=== PATIENT | female | born 1985 | race Caucasian/White ===

== ENCOUNTER 2017-08-04 19:06 | Emergency (ER) | payer OTHER ==
[~2017-08-04] VITALS: Ht 170.2 cm; Wt 68.0 kg
--- NOTE | 2017-08-04 21:14 | Diagnostic Imaging Report ---
KNEE RIGHT THREE VIEWS Comparison: None Clinical history: Right knee pain ongoing Findings: Limited portable views provided. Status post proximal tibial sideplate and screw fixation. No evidence of hardware failure or fracture. Subtle osseous irregularity of the lateral tibial plateau, which may be posttraumatic. Joint spaces are otherwise intact. Impression: No acute bony abnormality Signed by: Dr Lelo Pike MD on 08/04/2017 9:11 PM
[2017-08-04] MEDS ORDERED: HYDROCODONE/APAP 10MG-325MG TAB PO ONE (21:15)
[2017-08-04] MEDS ORDERED: ONDANSETRON HCL 4 MG ORAL DISINTEGRATING TAB PO ONE (21:30)
== END 2017-08-04 22:17 | disposition home or self-care (01) ==
LOC: ER 19:06
DX: M25.561 Pain in right knee (principal); G89.29 Other chronic pain
CPT/HCPCS: 99283

== ENCOUNTER 2021-01-22 19:53 | Emergency (ER) | payer SELFPAY ==
[~2021-01-22] VITALS: Ht 170.2 cm; Wt 63.5 kg
[2021-01-22] MEDS ORDERED: AUGMENTIN 875-1 EACH PO (21:24)
[2021-01-22] MEDS ORDERED: PERIDEX473 M1 PO (21:25)
[2021-01-22] MEDS ORDERED: IBUPROFEN 600 MG TAB PO STA (21:32)
[2021-01-22] MEDS ORDERED: IBUPROFEN 600 MG TAB ONE (21:40)
== END 2021-01-22 21:35 | disposition home or self-care (01) ==
LOC: ER 21:24
DX: K08.89 Other specified disorders of teeth and supporting structures (principal); D64.9 Anemia, unspecified; F41.9 Anxiety disorder, unspecified
CPT/HCPCS: 99283